=== PATIENT | female | born 1985 | race Caucasian/White ===

== ENCOUNTER 2017-03-09 09:35 | Emergency (ER) | payer OTHER ==
--- NOTE | 2017-03-09 09:42 | UC ---
Throat Pain/Nasal Nicola HPI - HPI Summary HPI Summary: 31 year old female presents with complains of sore throat and burning with urination. - History of Current Complaint Stated Complaint: SORE THROAT, EAR PAIN Time Seen by Provider: 03/09/17 09:41 Hx Obtained From: Patient Hx Last Menstrual Period: 11/12/15 Onset/Duration: Sudden Onset Severity: Moderate Pain Scale Used: 0-10 Numeric - 5 Cough: Nonproductive Associated Signs & Symptoms: Positive: Negative - Allergies/Home Medications Allergies/Adverse Reactions: Allergies Allergy/AdvReac Type Severity Reaction Status Date / Time No Known Allergies Allergy Verified 03/09/17 09:44 PMH/Surg Hx/FS Hx/Imm Hx Previously Healthy: Yes - Surgical History Surgical History: Yes Surgery Procedure, Year, and Place: c section x2. 89- walker placement- now removed. T&A. TUBAL LIGATION, 2008. D&C - Family History Known Family History: Positive: Hypertension - Social History Alcohol Use: Weekly Substance Use Type: None Smoking Status (MU): Heavy Every Day Tobacco Smoker Type: Cigarettes Amount Used/How Often: 1/2 ppd Length of Time of Smoking/Using Tobacco: since age 15 Have You Smoked in the Last Year: Yes When Did the Patient Quit Smoking/Using Tobacco: last night Review of Systems Constitutional: Negative Skin: Negative Eyes: Negative ENT: Negative Respiratory: Negative Cardiovascular: Negative Gastrointestinal: Negative Genitourinary: Negative Motor: Negative Neurovascular: Negative Musculoskeletal: Negative Neurological: Negative Psychological: Negative All Other Systems Reviewed And Are Negative: Yes Physical Exam Triage Information Reviewed: Yes Eye Exam: Normal ENT Exam: Normal Dental Exam: Normal Neck exam: Normal Neck: Positive: 1 Respiratory Exam: Normal Cardiovascular Exam: Normal Abdominal Exam: Normal Musculoskeletal Exam: Normal Neurological Exam: Normal Psychological Exam: Normal Skin Exam: Normal Throat Pain/Nasal Course/Dx - Differential Dx/Diagnosis Provider Diagnoses: pharyngitis. back pain. burning with urination Discharge - Discharge Plan Condition: Stable Disposition: HOME Prescriptions: LoraTADine TAB(NF) [Claritin 10 MG TAB(NF)] 10 mg PO DAILY #30 tab Magic M W2 Danny/Maal/Nyst/Lido* 5 ml SWISH SPIT QID PRN #120 ml PRN Reason: Sore Throat Patient Education Materials: Pharyngitis (ED) Referrals: Taras Barriga MD [Primary Care Provider] -
[2017-03-09 09:51] VITALS: BP 131/87
== END 2017-03-09 10:16 | disposition home or self-care (01) ==
LOC: UCCORT 09:35
DX: F17.210 Nicotine dependence, cigarettes, uncomplicated (principal); J02.9 Acute pharyngitis, unspecified; M54.9 Dorsalgia, unspecified; R30.0 Dysuria
CPT/HCPCS: 81003; 87651; 99212; G0463